=== PATIENT | female | born 1960 | race Caucasian/White ===

== ENCOUNTER 2017-12-25 17:29 | Emergency (ER) | payer OTHER ==
[~2017-12-25] VITALS: Ht 147.3 cm; Wt 75.3 kg
[2017-12-25 17:56] VITALS: Ht 147.3 cm; Wt 75.3 kg
[2017-12-25 18:54] VITALS: BP 115/68
[2017-12-25 19:01] LABS: microscopic required? YES; urine erythrocyte 3+ (NEGATIVE)
== END 2017-12-25 18:54 | disposition home or self-care (01) ==
LOC: ED 17:29
PROVIDERS: Emergency Medicine
DX: N39.0 Urinary tract infection, site not specified (principal); J44.9 Chronic obstructive pulmonary disease, unspecified; E03.9 Hypothyroidism, unspecified; Z90.710 Acquired absence of both cervix and uterus